=== PATIENT | female | born 2000 | race Caucasian/White ===

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

== ENCOUNTER 2020-01-23 15:36 | Day surgery (SDC) | payer OTHER ==
[2020-01-23 16:33] VITALS: BMI 28.3
[2020-01-23 16:35] VITALS: BP 108/57; TEMP 98.4
[2020-01-23] MEDS ORDERED: hydrALAZINE 20 MG/ML VIAL SLOW IVP PRN (16:55)
--- NOTE | 2020-01-24 04:13 | SS ---
DATE OF ADMISSION: 01/23/2020 DATE OF DISCHARGE: 01/23/2020 REGULAR PROVIDER: Tatiana Owens CNM EVALUATING PHYSICIAN: Grayson Cramer M.D. CHIEF COMPLAINT: Status post fall last night. HISTORY OF PRESENT ILLNESS: Ms. Ramirez is a 19-year-old white G1, P0, with an estimated date of confinement of April 11, who presents complaining of having a fall in her bathroom last night after running into the doorknob. She denies direct abdominal contact and fell on her side. She denies associated rupture of membranes or vaginal bleeding. Of note to her which she did not feel like her baby had been moving as much this afternoon in 6 evaluation now. Her care has been with Tatiana Owens so far and has been uncomplicated. PAST MEDICAL HISTORY: None. PAST SURGICAL HISTORY: Includes hernia repair, tonsillectomy, adenoidectomy, and ovarian cystectomy. CURRENT MEDICATIONS: vitamins and Zofran on a p.r.n. basis. ALLERGIES: TAMIFLU, MORPHINE, ZOLOFT. SOCIAL HISTORY: Denies tobacco, alcohol, or drug use. FAMILY HISTORY: Unremarkable. REVIEW OF SYSTEMS: Denies nausea, vomiting, fever, chills, ruptured membranes, or vaginal bleeding. PHYSICAL EXAMINATION: VITAL SIGNS: In triage, her vital signs are stable. She is afebrile. GENERAL: She is pleasant and in no distress. ABDOMEN: Soft, nontender, and gravid. There is no bruising of her abdomen. heart rate tracing is reassuring with spontaneous accelerations. There are no decelerations. The patient is given the clicker and there are numerous episodes of movement after she drank Coke. ASSESSMENT: 1. 28-5/7th week in intrauterine . 2. Reassuring testing tonight in triage. PLAN: Patient will be dismissed to home. Patient was instructed to watch for movements particularly in the hour or 2 after meals over the weekend. She is to return if there is bleeding or ruptured membranes. She states she has an appointment with Tatiana Owens next week. She voiced understanding of her discharge instructions and was sent home in good condition. Job ID: [id number]
== END 2020-01-23 17:01 | disposition home or self-care (01) ==
LOC: L&D/OP 15:36
PROVIDERS: ATTEND Advanced Practice Midwife
DX: O9A.213 Injury, poisoning and certain other consequences of external causes complicating pregnancy, third trimester (principal); Z3A.28 28 weeks gestation of pregnancy; Z88.5 Allergy status to narcotic agent; Z88.8 Allergy status to other drugs, medicaments and biological substances; W18.39XA Other fall on same level, initial encounter; Y92.002 Bathroom of unspecified non-institutional (private) residence as the place of occurrence of the external cause

== ENCOUNTER 2020-02-29 12:11 | Day surgery (SDC) | payer OTHER ==
[2020-02-29 12:39] VITALS: BP 113/72; TEMP 99.2; BMI 29.2
[2020-02-29] MEDS ORDERED: hydrALAZINE 20 MG/ML VIAL SLOW IVP PRN (14:02)
--- NOTE | 2020-02-29 14:03 | ULT ---
ULTRASOUND BIOPHYSICAL PROFILE: HISTORY: distress, decreased movement FINDINGS: A single live intrauterine gestation is seen. heart rate:136bpm RONALDO: 12.8 cm Placenta: Posterior without placenta previa OB biophysical profile: tone: 2 breathin movements: 2 Amniotic fluid: 2 The fetus has a cephalic presentation. IMPRESSION: The ultrasound biophysical profile score is 8 out of 8.
--- NOTE | 2020-02-29 14:24 | PRG ---
DATE OF SERVICE: 02/29/2020 PRESENTING COMPLAINT: 34 weeks gestation, decreased movement. No movement for a day. HISTORY OF PRESENT ILLNESS: Ms. Ramirez is a 19-year-old, 1, para 0, EDC of 04/11, 34 weeks 0 days. Reports 1 day of decreased to no movement. She denies rupture of membranes, fever, chills, nausea, vomiting, or any other symptoms. She reports an uncomplicated . [employer] HISTORY: Blood type A positive. Antibody negative. Pap negative. Rubella immune. VDRL nonreactive. Hepatitis B, GC, chlamydia negative. The patient had a positive drug screen. Early is negative since. Normal 1-hour GTT. Normal 32-week labs. has been complicated by her depression, bipolar, and she has had a couple of times of anxiety, has been on beta-blockers in the past, but not during . PAST MEDICAL HISTORY: Anxiety disorder, bipolar depressive disease. SURGICAL HISTORY: Ovarian cystectomy on the right. ALLERGIES: MORPHINE, TAMIFLU, SERTRALINE, AND ZOLOFT. MEDICATIONS: vitamins and Zofran. SOCIAL HISTORY: Denies tobacco, alcohol, or IV drug abuse. FAMILY HISTORY: Noncontributory. REVIEW OF SYSTEMS: Noncontributory. PHYSICAL EXAMINATION: VITAL SIGNS: Temperature 99.1, pulse 92, respirations 18, blood pressure 113/72. HEENT: Within normal limits. LUNGS: Clear to auscultation bilaterally. HEART: Regular rate and rhythm. ABDOMEN: Soft, nontender. Fundal height of 34. FHTs 140s. Vulva without lesions. Vaginal exam deferred. EXTREMITIES: No clubbing, cyanosis, or edema. Biophysical profile performed, which revealed cephalic posterior placenta, 136 heart rate and 12.8 RONALDO. Nonstress test was carried out, which revealed category 1 heart rate tracing. Positive accelerations, no decelerations, and the patient felt movement during the NST. IMPRESSION: Decreased movement, now resolved with normal biophysical profile. PLAN: Reassurance. Discharge home. Keep scheduled followup with Tatiana Owens at [facility]. Job ID: [id number]
== END 2020-02-29 14:00 | disposition home or self-care (01) ==
LOC: L&D/OP 12:11
PROVIDERS: ATTEND Advanced Practice Midwife
DX: O36.8130 Decreased fetal movements, third trimester, not applicable or unspecified (principal); O99.343 Other mental disorders complicating pregnancy, third trimester; F41.9 Anxiety disorder, unspecified; F31.9 Bipolar disorder, unspecified; Z3A.34 34 weeks gestation of pregnancy; Z88.5 Allergy status to narcotic agent; Z88.8 Allergy status to other drugs, medicaments and biological substances
CPT/HCPCS: 76819; 99282

== ENCOUNTER 2020-03-13 23:15 | Inpatient (IN) | payer OTHER ==
[2020-03-13 23:54] VITALS: BMI 30.5
[2020-03-14 00:01] LABS: Amnisure Test RUPTURE DETECTED (No Rupture)
[2020-03-14 00:02] LABS: Amnisure Internal Control QC ACCEPTABLE (ACCEPTABLE)
--- NOTE | 2020-03-14 00:35 | PDOC.FPROB ---
FMR OB H&P: HPI - History of Present Illness Chief Complaint: Loss of fluid Indentification: 19yo @ 36wks History of Present Illness: 19yo at 36 wks presented to L&D with complaint of loss of fluid. Pt states that at 2240 last night she went to the bathroom and when she sat back down on the couch she felt a pop and a gush of fluid. Since then she has been leaking clear fluid from her vagina everytime she stands up or moves around. She states when this originally happened she did not feel any associated contractions however now she is starting to feel tightening in her abdomen that is occurring every several minutes. She denies any recent fever, chills, or illness. Primary Care Physician: Ms. Tatiana Owens FMR OB H&P: Current - Care : 1 Para: 0 Gestational age: 36 Due date: 04/11/2020 Dating Criteria: 1T US and LMP - OB Labs Blood type: A RH: positive Antibody Screen: negative HIV: negative RPR: negative HepBsAg: negative Rubella: immune Gonorrhea: negative Chlamydia: negative 3 hour GTT: 85,175,115,137 GBS: unknown H&H: hgb: 9.6/hct: 31.1 Platelets: 205 FMR OB H&P: History - Past Medical History PMH: Bipolar disorder, asthma - OB History OB History: G1 - reports not complications in the - [employer] History [employer] History: Denies hx of STI, no hx of pap - Surgical History Sx History: Umbilical hernia repair at 5 yo. Right ovarian cyst removal at 15 yo - Social History Social History: Emancipated minor when she was 15, lives with FOB UDS + for THC initially in but negative since then, denies alcohol or tobacco - Family History Family History: Unknown FMR OB H&P: Medications - Current Home Medications: Medication Instructions Recorded Confirmed Type Pnv No.95/Ferrous Fum/Folic AC 1 capsule PO DAILY 01/23/20 03/13/20 History [ [place]] Ondansetron [Zofran ODT] 4 mg PO Q4HR PRN 02/29/20 03/13/20 History Allergies/Adverse Reactions: Allergies Allergy/AdvReac Type Severity Reaction Status Date / Time morphine Allergy Verified 01/23/20 16:26 oseltamivir [From Tamiflu] Allergy Verified 01/23/20 16:27 sertraline [From Zoloft] Allergy Verified 01/23/20 16:26 FMR OB H&P: ROS - Review of Systems General: denies: fever/chills, weight/appetite/sleep changes Eyes: denies: vision changes, double vision ENT: denies: nasal congestion, sore throat Cardiovascular: denies: chest pain, edema Respiratory: denies: cough, congestion, shortness of breath Gastrointestinal: reports: cramping (tightening - contractions). denies: nausea, vomiting, diarrhea, constipation Genitourinary (Female): reports: contractions. denies: incontinence, dysuria, polyuria, vaginal pain, vaginal bleeding Musculoskeletal: denies: pain, stiffness Neurologic: denies: weakness, headache Integumentary: denies: itching, rash Breast: denies: skin changes Hematologic/Lymphatic: denies: prolonged or excessive bleeding Psychological: denies: depression, anxiety FMR OB H&P: Vital Signs - Maternal Vital signs: Vital Signs - First Documented Temp Pulse Resp BP 98.9 F 100 16 123/82 03/13/20 23:41 03/13/20 23:41 03/13/20 23:41 03/13/20 23:41 - Heart Tones Baseline: 140 Variability: moderate Acceleration: present Deceleration: absent Category: category 1 [place] contractions every: 5-9 FMR OB H&P: Physical Exam - Physical Exam General: NAD, awake, alert and oriented HEENT: EOMI, MMM Heart: RRR, normal S1/S2 General: CTAB, no respiratory distress, good air movement Abdomen: soft, gravid, non-tender Musculoskeletal: pulses present, FROM in all four extremities Neurological: no focal deficit Skin: no rash Lymphatic: no unusual bruising or bleeding, no purpura Psychiatric: intact recent and remote memory, good judgement and insight, normal mood and affect - Pelvic Exam SVE: /-2 Chowdary score: 6 Membranes: ROM Presentation: cephalic FMR OB H&P: Results - Labs Lab results: Laboratory Results - last 24 hr 03/13/20 23:45 Amnio Swab Test RUPTURE DETECTED H FMR OB H&P: A/P Disposition: Labor - ROM at home, now giovani spontaneously - /-2 - GBS unknown in : will start penicillin - Discussed options of expectant management vs starting labor augmentation agents - pt elected to proceed with pitocin augmentation Plan: Admit to L&D for labor with augmentation Fabrizio Rich - PGY2 Discussion: Date/Time: 03/14/20 0035 This H&P was discussed with Dr. Bennett who agrees with the above documentation and plan. Addendum - Attending - Attending Attestation Date/Time: 03/15/2061 I personally evaluated the patient and discussed the management with Dr. Rihc. I agree with the History, Examination, Assessment and Plan documented above with any addition or exceptions noted below.
[2020-03-14] MEDS ORDERED: Promethazine HCl 25 MG/ML VIAL IM PRN ×2 (00:53→03:34)
[2020-03-14] MEDS ORDERED: Ibuprofen 800 MG TAB PO PRN (00:53)
[2020-03-14] MEDS ORDERED: Carboprost 250 MCG/ML AMP IM PRN (00:53)
[2020-03-14] MEDS ORDERED: Lidocaine 1% (PF) 30 ML VIAL SC PRN (00:53)
[2020-03-14] MEDS ORDERED: Butorphanol Tartrate 1 MG/ML VIAL SLOW IVP PRN (00:53)
[2020-03-14] MEDS ORDERED: Ondansetron PF 4 MG/2 ML Vial IVP PRN ×2 (00:53→03:34)
[2020-03-14] MEDS ORDERED: Docusate 100 MG CAP PO PRN (00:53)
[2020-03-14] MEDS ORDERED: Methylergonovine 0.2 MG/ML VIAL IM PRN ×2 (00:53→09:33)
[2020-03-14] MEDS ORDERED: Misoprostol 200 MCG TAB PR PRN (00:53)
[2020-03-14] MEDS ORDERED: hydrALAZINE 20 MG/ML VIAL SLOW IVP PRN (00:53)
[2020-03-14] MEDS ORDERED: Acetaminophen 500 MG TAB PO PRN (00:53)
[2020-03-14] MEDS ORDERED: NS w/ Oxytocin 10 units 500 ML IV SCH ×2 (01:00)
[2020-03-14] MEDS ORDERED: Penicillin G Potassium 5 MILL.UNITS in Sodium Chloride 0.9% 100 ML IVPB SCH (01:00)
[2020-03-14] MEDS: Lactated Ringer's 1,000 ML IV SCH ×2 (01:53→03:55)
[2020-03-14 01:55] LABS: Hemoglobin 9.6 g/dL (12.0-16.0); Mean Corpuscular HGB CONC 33.3 g/dL (32.0-36.0); Mean Corpuscular Volume 80.9 fL (78.0-98.0); Mean Platelet Volume 10.3 fL (7.4-10.4); Platelet Count 175 thou/uL (130-400); RBC Distribution Width 12.9 % (11.5-14.5); Red Blood Cell (RBC) Count 3.55 mill/uL (4.00-5.20); White Blood Cell (WBC) Count 12.1 thou/uL (4.8-10.8)
[2020-03-14 02:32] LABS: HBSAg Index 0.13 S/CO (0-0.99); Hep B Surf Ag Non-Reactive S/CO (NonReactive)
[2020-03-14] MEDS ORDERED: Fentanyl 4 mcg/Bup 0.1% Cadd 100 ML ONE (02:47)
[2020-03-14] MEDS ORDERED: Naloxone HCl 0.4 mg/ml Vial IVP PRN ×2 (03:34)
[2020-03-14] MEDS ORDERED: Acetaminophen 325 MG TAB PO PRN (03:34)
[2020-03-14] MEDS ORDERED: EPHEDRINE 25 MG/5 ML SYRINGE SLOW IVP PRN (03:34)
[2020-03-14] MEDS ORDERED: Lactated Ringer's 500 ML IV PRN (03:34)
[2020-03-14] MEDS ORDERED: diphenhydrAMINE 50 MG/ML VIAL IVP PRN (03:34)
[2020-03-14] MEDS ORDERED: Communication Order-Pharmacy FS SCH (03:45)
[2020-03-14] MEDS ORDERED: Fentanyl 4 mcg/Bupivacaine 0.1% Cassette 100 ML EPIDURAL SCH (03:45)
[2020-03-14] MEDS ORDERED: Calcium Carbonate 500 MG ChewTAB PO SCH (04:30)
[2020-03-14 05:10] LABS: Syphilis Antibody Nonreactive (Nonreactive); Syphilis Antibody Index 0.04 S/CO (<1.00 Non-Reactive)
[2020-03-14] MEDS: Penicillin G 2.5 MILL.units 2.5 MILL.UNITS in Premix Bag 1 BAG IVPB SCH ×2 (06:21→10:22)
--- NOTE | 2020-03-14 09:04 | PDOC.OPDEL ---
OB Operative/Delivery Note Delivery Dr/Surgeon: Bela Assist: Pre-Delivery Diagnosis: active labor Procedure/Post Delivery Dx: spontaneous vaginal delivery Weeks gestation: 39 Anesthesia: epidural - Additional Findings/Plan Placenta delivered: spontaneous Repaired Obstetrical Laceration: periurethral Estimated blood loss: 250, QBL pending Compilations/Other Findings: of viable female delivered OA. Apgars 8/9. Placenta intact Susana. Small bilateral labial lacs repaired with 3-0 chromic. Baby and mom doing well. To recover in L&D. Post delivery plan: routine recovery
[2020-03-14] MEDS ORDERED: Milk Of Magnesia 30 ML UDCUP PO PRN (09:33)
[2020-03-14] MEDS ORDERED: Lanolin Ointment 7 GM TUBE TOP PRN (09:33)
[2020-03-14] MEDS ORDERED: Benzocaine-Menthol 82.5 ML CAN TOP PRN (09:33)
[2020-03-14] MEDS ORDERED: Methylergonovine 0.2 MG TAB PO PRN (09:33)
[2020-03-14] MEDS ORDERED: Misoprostol 200 MCG TAB VAG PRN (09:33)
[2020-03-14] MEDS ORDERED: Bisacodyl 10 MG SUPP PR PRN (09:33)
[2020-03-14] MEDS: NS / Oxytocin 40 units/1000ml 1,000 ML IV PRN ×3 (09:34→11:07)
[2020-03-14] MEDS ORDERED: Bupivacaine/Epinephrine 0.25% 30 ML VIAL ONE (09:54)
[2020-03-14] MEDS: Ibuprofen 800 MG TAB PO SCH ×3 (10:44→23:30)
[2020-03-14 12:27] LABS: SARS-CoV-2 MS2 Positive; SARS-CoV-2 N Gene Negative; SARS-CoV-2 S Gene Negative; SARS-CoV-2 by NAA Not Detected (NotDetected); SARS-CoV-2 orf1ab Negative
[2020-03-14] MEDS: Ferrous Sulfate 325 MG TAB PO SCH (16:41)
[2020-03-14] MEDS: Docusate Calcium (SURFAK) 240 MG CAP PO SCH (23:30)
--- NOTE | 2020-03-15 03:24 | PDOC.PP ---
Post Progress Note Post Day #: PPD1 Subjective: Resting, no complaints. PO intake tolerated: yes Ambulation: yes Vital Signs (12 hours) Temp Pulse Resp BP Pulse Ox 03/14/20 23:30 98.2 F 70 18 115/64 03/14/20 20:03 97.7 F 67 18 109/63 98 03/14/20 16:00 98.3 F 78 16 110/63 98 Weight Weight 75.75 kg - Physical Examination General: NAD Respiratory: non-labored breathing Neurological: no gross focal deficits Psychiatric: normal affect Result Diagrams: 03/14/20 01:39 Additional Labs: Post Labs Hep Bs Antigen Non-Reactive S/CO (NonReactive) 03/14/20 01:39 Blood Type A POSITIVE 03/14/20 01:39 - Assessment/Plan Doing well s/p . Routine PP care. Anticipate home 03/16.
[2020-03-15] MEDS: Ibuprofen 800 MG TAB PO SCH ×3 (06:14→21:05)
[2020-03-15] MEDS: Docusate Calcium (SURFAK) 240 MG CAP PO SCH ×2 (09:20→21:05)
[2020-03-15] MEDS: Prenatal Vitamin 1 TAB PO SCH (09:20)
[2020-03-15] MEDS: Ferrous Sulfate 325 MG TAB PO SCH ×2 (09:20→17:35)
[2020-03-16] MEDS: Ibuprofen 800 MG TAB PO SCH (05:33)
[2020-03-16] MEDS: Prenatal Vitamin 1 TAB PO SCH (08:32)
[2020-03-16] MEDS: Docusate Calcium (SURFAK) 240 MG CAP PO SCH (08:32)
[2020-03-16] MEDS: Ferrous Sulfate 325 MG TAB PO SCH (08:32)
[2020-03-16 08:59] VITALS: BP 129/67; TEMP 98.2
--- NOTE | 2020-03-16 10:56 | PDOC.BPN ---
- Brief Progress Note Encounter Date: 03/16/20 Encounter Time: 10:50 Patient was DC'd to home earlier tofay per Dr Bennett. We will keep as courtesy B&B
== END 2020-03-16 11:05 | disposition home or self-care (01) | DRG 807 ==
LOC: L&D/OP 23:15 → L&D 03-14 00:54 → 3SE 03-14 11:47 → 3SW 03-14 18:54
PROVIDERS: ADMIT Obstetrics & Gynecology; ATTEND Obstetrics & Gynecology
PROC: 10E0XZZ Delivery of Products of Conception, External Approach (ICD-10-PCS; principal; 2020-03-14)
PROC: 0UQMXZZ Repair Vulva, External Approach (ICD-10-PCS; 2020-03-14)
DX: O60.14X0 Preterm labor third trimester with preterm delivery third trimester, not applicable or unspecified (principal); Z37.0 Single live birth; Z3A.36 36 weeks gestation of pregnancy; Z98.890 Other specified postprocedural states; Z88.6 Allergy status to analgesic agent; Z88.8 Allergy status to other drugs, medicaments and biological substances; O71.82 Other specified trauma to perineum and vulva; O70.0 First degree perineal laceration during delivery; Z20.828 Contact with and (suspected) exposure to other viral communicable diseases
CPT/HCPCS: 36415; 51702; 84112; 85027; 86780; 86850; 86900; 86901; 87340; 87635; 99285; J2405; J2540; J3490; U0003

== ENCOUNTER 2020-12-09 20:41 | Emergency (ER) | payer OTHER ==
[2020-12-09] MEDS ORDERED: Acetaminophen 500 MG TAB ONE (21:13)
[2020-12-09] MEDS ORDERED: Ibuprofen 200 MG TAB ONE (21:13)
== END 2020-12-09 22:00 | disposition home or self-care (01) ==
LOC: ERS 20:41
DX: R51.9 Headache, unspecified (principal); J45.909 Unspecified asthma, uncomplicated
CPT/HCPCS: 70450